=== PATIENT | female | born 1980 | race Caucasian/White ===

== ENCOUNTER 2019-05-17 15:12 | Emergency (ER) | payer MEDICAID ==
[2019-05-17] MEDS: IBUPROFEN 600 MG TAB PO (16:25)
[2019-05-17 20:32] LABS: URINE BLOOD (Dip) POC 3+ (NEGATIVE); URINE GLUCOSE (Dip) POC Negative (NEGATIVE); URINE KETONES (Dip) POC 4+ (NEGATIVE); URINE LEUKOCYTE EST (Dip) POC 1+ (NEGATIVE); URINE NITRITE (Dip) POC Negative (NEGATIVE); URINE TOTAL PROTEIN POC 2+ (NEGATIVE)
[2019-05-17 20:32] LABS: URINE PH (Dip) POC 5.5 (5.0-8.5)
== END 2019-05-17 20:52 | disposition home or self-care (01) ==
LOC: FTE 20:52
DX: S09.90XA Unspecified injury of head, initial encounter (principal); Y04.2XXA Assault by strike against or bumped into by another person, initial encounter
CPT/HCPCS: 81003; 81025; 99283